=== PATIENT | male | born 1960 | race Hispanic/Latino ===

== ENCOUNTER 2017-05-25 07:51 | Day surgery (SDC) | payer OTHER, MEDICARE ==
[2017-05-24 10:06] VITALS: BP 139/87
[2017-05-24 10:12] LABS: BASOPHILS % (AUTO) 0.7 % (0.0-5.0); EOSINOPHILS % (AUTO) 2.8 % (0.0-8.0); HEMATOCRIT 41.3 % (42-54); LYMPHOCYTES % (AUTO) 27.5 % (21.0-51.0); MEAN CORPUSCULAR HGB CONC 35.2 g/dL (32.0-36.0); MONOCYTES % (AUTO) 6.7 % (3.0-13.0); NEUTROPHILS % (AUTO) 62.3 % (40.0-77.0); PLATELET COUNT (AUTO) 165 K/uL (130-400); RED CELL DISTRIBUTION WIDTH 14.2 % (11.0-15.5); WHITE BLOOD COUNT (AUTO) 6.8 K/uL (4.8-10.8)
[2017-05-24 10:21] LABS: APPEARANCE,URINE Clear (CLEAR); BILIRUBIN,URINE Negative (NEGATIVE); COLOR,URINE Yellow (YELLOW); GLUCOSE, URINE (UA) Negative (NEGATIVE); KETONES,URINE Negative (NEGATIVE); LEUKOCYTE ESTERASE ,URINE Negative (NEGATIVE); NITRATE,URINE Negative (NEGATIVE); OCCULT BLOOD,URINE Small (NEGATIVE); PROTEIN,URINE Negative (NEGATIVE)
[2017-05-24 10:35] LABS: POTASSIUM 4.2 mmol/L (3.5-5.1)
[2017-05-24 10:51] LABS: BACTERIA,URINE Rare /HPF (None Seen); RBC,URINE 0-1 /HPF (0-1); SQUAMOUS EPITHELIAL CELL,UR Rare /LPF (0-2); WBC,URINE 0-1 /HPF (0-1)
[~2017-05-25] VITALS: Ht 170.2 cm; Wt 128.5 kg
[2017-05-25] VITALS (15 sets, daily range): BP systolic 95–131; BP diastolic 56–96
[~2017-05-25 07:51] MED LIST: ALLO300T2 PO; ATOR40TA71 PO; COLC0.6T70 PO; LISI1TAB9 PO; SERT25TA5 PO
[2017-05-25] MEDS ORDERED: INDO50CA71 PO (08:22)
[2017-05-25] MEDS ORDERED: GABA-529 PO (08:22)
[2017-05-25] MEDS ORDERED: LACTATED RINGERS 1000ML 1,000 ML IV ONE (08:24)
[2017-05-25] MEDS ORDERED: BUPIVACAINE/PF 0.25% 30ML VIAL IJ ONE (09:08)
[2017-05-25] MEDS ORDERED: LIDOCAINE PF 2% 5ML ABBOJECT ONE (09:08)
[2017-05-25] MEDS ORDERED: ROCURONIUM BROMIDE 10MG/1ML 5ML VL ONE (09:08)
[2017-05-25] MEDS ORDERED: ONDANSETRON HCL MDV 20ML 2 MG/ML VIAL ONE (09:08)
[2017-05-25] MEDS ORDERED: SUCCINYLCHOLINE 200MG/10ML SYR ONE (09:08)
[2017-05-25] MEDS ORDERED: MIDAZOLAM HCL 1 MG/ML 2ML VIAL ONE (09:09)
[2017-05-25] MEDS ORDERED: PROPOFOL 10 MG/ML 20ML VIAL IV ONE ×2 (09:09)
[2017-05-25] MEDS ORDERED: FENTANYL CITRATE PF 50 MCG/1 ML 5ML AMP IV ONE (09:15)
[2017-05-25] MEDS ORDERED: CALDOLOR 800MG+NS 250ML 250 ML IV ONE (09:43)
[2017-05-25] MEDS ORDERED: GLYCOPYRROLATE 0.2 MG/ML 5 ML VIAL ONE (10:15)
[2017-05-25] MEDS ORDERED: PHENYLEPHRINE HCL 10 MG/ML 1ML VIAL IV ONE (10:15)
[2017-05-25] MEDS ORDERED: MEPERIDINE-PF 25 MG/ML SYG ONE (11:03)
== END 2017-05-25 12:24 | disposition home or self-care (01) ==
LOC: DAH 07:51
PROVIDERS: ATTEND Surgery
DX: K42.9 Umbilical hernia without obstruction or gangrene (principal); Z98.890 Other specified postprocedural states; I10 Essential (primary) hypertension; F41.9 Anxiety disorder, unspecified; E66.01 Morbid (severe) obesity due to excess calories; M10.9 Gout, unspecified
CPT/HCPCS: 36415; 49585; 80048; 81001; 85025; A4450; A4606; A4930; C1781; J0330; J1741; J2001; J2175; J2250; J2370; J2704 ×2; J3490 ×3; J7120 ×2; J3010

== ENCOUNTER 2017-06-05 14:32 | Inpatient (IN) | payer OTHER, MEDICARE ==
[~2017-06-05] VITALS: Ht 172.7 cm; Wt 130.3 kg
[~2017-06-05 14:32] MED LIST changes: +GABA-529 PO; +INDO50CA12 PO
[2017-06-05] MEDS ORDERED: MEROPENEM 1 GM VIAL ONE ×2 (15:38→22:01)
[2017-06-05] MEDS ORDERED: SODIUM CHLORIDE 0.9% 1000ML 1,000 ML IV ONE (15:38)
[2017-06-05] MEDS ORDERED: METRONIDAZOLE 500MG/100ML BAG 100 ML ONE (15:39)
[2017-06-05] MEDS ORDERED: MORPHINE SULFATE 4 MG/1ML SYG ONE ×2 (15:41→22:01)
[2017-06-05 15:45] LABS: BASOPHILS % (AUTO) 0.6 % (0.0-5.0); EOSINOPHILS % (AUTO) 2.4 % (0.0-8.0); HEMATOCRIT 40.5 % (42-54); LYMPHOCYTES % (AUTO) 24.7 % (21.0-51.0); MEAN CORPUSCULAR HEMOGLOBIN 30.9 pg (27.0-33.0); MEAN CORPUSCULAR HGB CONC 35.6 g/dL (32.0-36.0); MEAN CORPUSCULAR VOLUME 86.8 fL (79-99); MONOCYTES % (AUTO) 9.7 % (3.0-13.0); NEUTROPHILS % (AUTO) 62.6 % (40.0-77.0); PLATELET COUNT (AUTO) 206 K/uL (130-400); RED BLOOD CELL COUNT(AUTO) 4.67 MIL/uL (4.50-6.20); RED CELL DISTRIBUTION WIDTH 14.1 % (11.0-15.5); WHITE BLOOD COUNT (AUTO) 8.8 K/uL (4.8-10.8)
[2017-06-05 16:00] LABS: CREATININE 1.2 mg/dL (0.5-1.5); POTASSIUM 3.7 mmol/L (3.5-5.1)
[2017-06-06] MEDS ORDERED: METRONIDAZOLE 500MG/100ML BAG 100 ML ONE ×2 (00:03→07:37)
[2017-06-06] MEDS ORDERED: SODIUM CHLORIDE 0.9% 100 ML IV ONE ×2 (04:03→09:46)
[2017-06-06] MEDS ORDERED: MEROPENEM 1 GM VIAL ONE ×2 (04:03→09:45)
[2017-06-06 07:30] VITALS: BP 110/59
[2017-06-06] MEDS ORDERED: MORPHINE SULFATE 4 MG/1ML SYG ONE (08:34)
[2017-06-06] MEDS ORDERED: ONDANSETRON HCL MDV 20ML 2 MG/ML VIAL ONE (08:52)
[2017-06-06 12:05] VITALS: BP 125/80
[2017-06-06] MEDS ORDERED: ONDANSETRON HCL MDV 20ML 2 MG/ML VIAL IVP PRN (12:30)
[2017-06-06] MEDS: MEROPENEM 1 GM VIAL IVP SCH ×2 (16:37→23:26)
[2017-06-06] MEDS: METRONIDAZOLE 500MG/100ML BAG 100 ML IVPB SCH ×2 (16:38→19:31)
[2017-06-06 17:20] VITALS: BP 115/69
[2017-06-06] MEDS: SODIUM CHLORIDE 0.9% 1000ML 1,000 ML IV SCH (19:14)
[2017-06-06 19:58] VITALS: BP 128/82
[2017-06-07] VITALS (7 sets, daily range): BP systolic 108–128; BP diastolic 64–87
[2017-06-07] MEDS: MEROPENEM 1 GM VIAL IVP SCH ×4 (05:21→22:44)
[2017-06-07] MEDS: METRONIDAZOLE 500MG/100ML BAG 100 ML IVPB SCH ×3 (05:22→22:45)
[2017-06-07] MEDS: SODIUM CHLORIDE 0.9% 1000ML 1,000 ML IV SCH (22:49)
[2017-06-08 03:53] VITALS: BP 133/86
[2017-06-08] MEDS: MEROPENEM 1 GM VIAL IVP SCH ×3 (05:45→17:27)
[2017-06-08] MEDS: METRONIDAZOLE 500MG/100ML BAG 100 ML IVPB SCH ×2 (05:45→14:32)
[2017-06-08] MEDS: SODIUM CHLORIDE 0.9% 1000ML 1,000 ML IV SCH (05:51)
[2017-06-08 07:53] VITALS: BP 132/82
[2017-06-08 11:00] VITALS: BP 144/89
[2017-06-08] MEDS ORDERED: METR500T PO (14:28)
[2017-06-08 16:00] VITALS: BP 138/74
== END 2017-06-08 18:05 | disposition home or self-care (01) | DRG 603 ==
LOC: EDH 14:32 → EDHIP 14:33 → 3CH 06-06 11:40
PROVIDERS: ADMIT Surgery; ATTEND Surgery
DX: L03.311 Cellulitis of abdominal wall (principal); E66.01 Morbid (severe) obesity due to excess calories; Z68.41 Body mass index [BMI] 40.0-44.9, adult; I10 Essential (primary) hypertension; Z91.041 Radiographic dye allergy status
CPT/HCPCS: 36415; 80048; 85025; A4218; J2185; J2270; J3490; J7030

== ENCOUNTER 2017-12-20 04:47 | Emergency (ER) | payer OTHER, MEDICARE ==
[~2017-12-20 04:47] MED LIST changes: +ALBU18HF7 IH; -INDO50CA12 PO; +MECL12.585 PO; +PRED20TA3 PO
[2017-12-20] MEDS ORDERED: ONDANSETRON HCL 4 MG/2 ML VIAL ONE (04:53)
[2017-12-20] MEDS ORDERED: KETOROLAC TROMETHAMINE 30MG/ML ONE (05:04)
[2017-12-20] MEDS ORDERED: HYDROCODONE/ACETAMINOPHEN 10/325 MG TAB ONE (05:05)
[2017-12-20 05:33] LABS: BASOPHILS % (AUTO) 0.5 % (0.0-5.0); EOSINOPHILS % (AUTO) 2.3 % (0.0-8.0); HEMATOCRIT 43.2 % (42-54); LYMPHOCYTES % (AUTO) 30.5 % (21.0-51.0); MEAN CORPUSCULAR HEMOGLOBIN 31.3 pg (27.0-33.0); MEAN CORPUSCULAR HGB CONC 34.6 g/dL (32.0-36.0); MEAN CORPUSCULAR VOLUME 90.3 fL (79-99); MONOCYTES % (AUTO) 6.9 % (3.0-13.0); NEUTROPHILS % (AUTO) 59.8 % (40.0-77.0); PLATELET COUNT (AUTO) 195 K/uL (130-400); RED BLOOD CELL COUNT(AUTO) 4.78 MIL/uL (4.50-6.20); RED CELL DISTRIBUTION WIDTH 14.8 % (11.0-15.5); WHITE BLOOD COUNT (AUTO) 9.9 K/uL (4.8-10.8)
[2017-12-20 05:36] LABS: CREATININE 1.1 mg/dL (0.5-1.5); POTASSIUM 4.4 mmol/L (3.5-5.1)
[2017-12-20] MEDS ORDERED: DEXAMETHASONE SOD PHOSPHATE 10MG/ML 1ML VIAL ONE (06:17)
== END 2017-12-20 06:45 | disposition home or self-care (01) ==
LOC: EDH 04:47
DX: M25.562 Pain in left knee (principal); Z87.891 Personal history of nicotine dependence
CPT/HCPCS: 36415; 73562; 80048; 85025; 96374; 96375; 99285; J1100; J1885; J2405

== ENCOUNTER 2018-01-17 22:19 | Emergency (ER) | payer OTHER, MEDICARE ==
[2018-01-17] MEDS ORDERED: ONDANSETRON HCL 4 MG/2 ML VIAL ONE (23:43)
[2018-01-17] MEDS ORDERED: MORPHINE SULFATE 4 MG/1ML SYG ONE (23:44)
[2018-01-18] MEDS ORDERED: MORPHINE SULFATE 4 MG/1ML SYG ONE (01:00)
[2018-01-18] MEDS ORDERED: KETOROLAC TROMETHAMINE 30MG/ML ONE (01:00)
[2018-01-18] MEDS ORDERED: SODIUM CHLORIDE 0.9% 500ML 500 ML IV ONE (01:15)
[2018-01-18 01:22] LABS: APPEARANCE,URINE Clear (CLEAR); BILIRUBIN,URINE Negative (NEGATIVE); COLOR,URINE Yellow (YELLOW); GLUCOSE, URINE (UA) Negative (NEGATIVE); KETONES,URINE Negative (NEGATIVE); LEUKOCYTE ESTERASE ,URINE Negative (NEGATIVE); NITRATE,URINE Negative (NEGATIVE); OCCULT BLOOD,URINE Negative (NEGATIVE); PROTEIN,URINE Negative (NEGATIVE)
== END 2018-01-18 02:08 | disposition home or self-care (01) ==
LOC: EDH 22:19
DX: G89.29 Other chronic pain (principal); M54.5 Low back pain
CPT/HCPCS: 72131; 81003; 96374; 96375; 96376; 99285; J1885; J2270 ×2; J2405; J7040

== ENCOUNTER → 2018-01-30 | Outpatient (CLI) | payer OTHER, MEDICARE | END | disposition home or self-care (01) | LOC: SHCH 07:58 | PROVIDERS: ATTEND Internal Medicine Cardiovascular Disease | DX: I73.9 Peripheral vascular disease, unspecified (principal); R60.9 Edema, unspecified | CPT/HCPCS: 93922; 93970 ==

== ENCOUNTER 2018-06-06 02:12 | Emergency (ER) | payer OTHER, MEDICARE ==
[2018-06-06] MEDS ORDERED: ASPIRIN 325 MG TABLET ONE (02:24)
[2018-06-06 02:44] LABS: BASOPHILS % (AUTO) 0.9 % (0.0-5.0); EOSINOPHILS % (AUTO) 3.2 % (0.0-8.0); HEMATOCRIT 42.2 % (42-54); LYMPHOCYTES % (AUTO) 32.9 % (21.0-51.0); MEAN CORPUSCULAR HEMOGLOBIN 30.9 pg (27.0-33.0); MEAN CORPUSCULAR VOLUME 88.1 fL (79-99); MONOCYTES % (AUTO) 6.8 % (3.0-13.0); NEUTROPHILS % (AUTO) 56.2 % (40.0-77.0); PLATELET COUNT (AUTO) 164 K/uL (130-400); RED BLOOD CELL COUNT(AUTO) 4.78 MIL/uL (4.50-6.20); RED CELL DISTRIBUTION WIDTH 13.6 % (11.0-15.5); WHITE BLOOD COUNT (AUTO) 7.8 K/uL (4.8-10.8)
[2018-06-06 03:05] LABS: CREATININE 1.1 mg/dL (0.5-1.5); POTASSIUM 3.4 mmol/L (3.5-5.1)
[2018-06-06] MEDS ORDERED: KETOROLAC TROMETHAMINE 30MG/ML ONE (03:12)
[2018-06-06 03:16] LABS: ALBUMIN 3.8 g/dL (3.5-5.0); BILIRUBIN,TOTAL 0.4 mg/dL (0.2-1.0); TOTAL PROTEIN, SERUM 6.8 g/dL (6.0-8.3)
== END 2018-06-06 03:51 | disposition home or self-care (01) ==
LOC: EDH 02:12
DX: R07.89 Other chest pain (principal); R42 Dizziness and giddiness; F41.9 Anxiety disorder, unspecified; I10 Essential (primary) hypertension
CPT/HCPCS: 36415; 71045; 80053; 82550; 84484; 85025; 93005; 96374; 99284; J1885

== ENCOUNTER 2018-09-23 21:13 | Emergency (ER) | payer OTHER, MEDICARE | END 2018-09-23 23:18 | LOC: EDH 21:13 | DX: S50.01XA Contusion of right elbow, initial encounter (principal); M54.5 Low back pain; I10 Essential (primary) hypertension; M19.90 Unspecified osteoarthritis, unspecified site; F41.9 Anxiety disorder, unspecified; Z98.890 Other specified postprocedural states; X58.XXXA Exposure to other specified factors, initial encounter; Y93.89 Activity, other specified; Y92.89 Other specified places as the place of occurrence of the external cause; Y99.8 Other external cause status | CPT/HCPCS: 72100; 73080 ==

== ENCOUNTER 2019-01-06 17:43 | Emergency (ER) | payer OTHER, MEDICARE ==
[~2019-01-06 17:43] MED LIST changes: +LISI1TAB32 PO; -LISI1TAB9 PO
[2019-01-06 18:18] LABS: BASOPHILS % (AUTO) 1.1 % (0.0-5.0); EOSINOPHILS % (AUTO) 2.4 % (0.0-8.0); HEMATOCRIT 43.7 % (42-54); LYMPHOCYTES % (AUTO) 29.7 % (21.0-51.0); MEAN CORPUSCULAR HEMOGLOBIN 31.2 pg (27.0-33.0); MEAN CORPUSCULAR HGB CONC 34.8 g/dL (32.0-36.0); MEAN CORPUSCULAR VOLUME 89.8 fL (79-99); MONOCYTES % (AUTO) 7.3 % (3.0-13.0); NEUTROPHILS % (AUTO) 59.5 % (40.0-77.0); PLATELET COUNT (AUTO) 165 K/uL (130-400); RED BLOOD CELL COUNT(AUTO) 4.87 MIL/uL (4.50-6.20); RED CELL DISTRIBUTION WIDTH 13.6 % (11.0-15.5); WHITE BLOOD COUNT (AUTO) 7.5 K/uL (4.8-10.8)
[2019-01-06] MEDS ORDERED: ASPIRIN 325 MG TABLET ONE (18:32)
[2019-01-06 18:38] LABS: CREATININE 1.5 mg/dL (0.5-1.5); POTASSIUM 3.9 mmol/L (3.5-5.1)
[2019-01-06 18:39] LABS: INR 0.93 (0.85-1.15); PARTIAL THROMBOPLASTIN TIME 24.9 SEC (26.3-35.5); PROTHROMBIN TIME 9.8 SEC (9.6-11.6)
[2019-01-06 18:42] LABS: ALBUMIN 3.7 g/dL (3.5-5.0); BILIRUBIN,TOTAL 0.3 mg/dL (0.2-1.0); TOTAL PROTEIN, SERUM 7.1 g/dL (6.0-8.3)
[2019-01-06 19:23] LABS: APPEARANCE,URINE Clear (CLEAR); BILIRUBIN,URINE Negative (NEGATIVE); COLOR,URINE Yellow (YELLOW); GLUCOSE, URINE (UA) Negative (NEGATIVE); KETONES,URINE Negative (NEGATIVE); LEUKOCYTE ESTERASE ,URINE Negative (NEGATIVE); NITRATE,URINE Negative (NEGATIVE); OCCULT BLOOD,URINE Negative (NEGATIVE); PROTEIN,URINE Negative (NEGATIVE)
[2019-01-06 19:36] LABS: AMPHET/METH SCREEN,URINE NEGATIVE (NEGATIVE); BARBITURATE SCREEN, URINE NEGATIVE (NEGATIVE); BENZODIAZEPINES SCREEN,URINE NEGATIVE (NEGATIVE); CANNABINOID SCREEN,URINE NEGATIVE (NEGATIVE); COCAINE SCREEN,URINE NEGATIVE (NEGATIVE); OPIATE SCREEN,URINE POSITIVE (NEGATIVE); PHENCYCLIDINE SCREEN,URINE NEGATIVE (NEGATIVE)
== END 2019-01-06 21:33 | disposition home or self-care (01) ==
LOC: EDH 17:43
DX: R07.89 Other chest pain (principal); R73.9 Hyperglycemia, unspecified; R06.02 Shortness of breath
CPT/HCPCS: 36415; 71045; 80053; 80305; 81003; 82550; 84484; 85025; 85610; 85730; 93005

== ENCOUNTER 2019-01-07 08:07 | Emergency (ER) | payer OTHER, MEDICARE ==
[2019-01-07] MEDS ORDERED: TETANUS/DIPHTHERIA TOXOID [ADULT] 0.5 ML VIAL IM ONE (09:22)
== END 2019-01-07 09:36 | disposition home or self-care (01) ==
LOC: EDH 08:07
DX: S91.012A Laceration without foreign body, left ankle, initial encounter (principal); H60.312 Diffuse otitis externa, left ear; F41.9 Anxiety disorder, unspecified; M19.90 Unspecified osteoarthritis, unspecified site; I10 Essential (primary) hypertension; W26.8XXA Contact with other sharp object(s), not elsewhere classified, initial encounter; Y93.89 Activity, other specified; Y92.89 Other specified places as the place of occurrence of the external cause; Y99.8 Other external cause status
CPT/HCPCS: 12002; 90471; 90714

== ENCOUNTER 2019-03-28 22:49 | Emergency (ER) | payer OTHER, MEDICARE ==
[~2019-03-28 22:49] MED LIST changes: +MECL-183 PO; -MECL12.585 PO
[2019-03-28] MEDS ORDERED: NAPROXEN 500 MG TABLET ONE (23:42)
== END 2019-03-28 23:54 | disposition home or self-care (01) ==
LOC: EDH 22:49
DX: S62.101A Fracture of unspecified carpal bone, right wrist, initial encounter for closed fracture (principal); F41.9 Anxiety disorder, unspecified; M19.90 Unspecified osteoarthritis, unspecified site; M10.9 Gout, unspecified; I10 Essential (primary) hypertension; Z98.890 Other specified postprocedural states; W18.39XA Other fall on same level, initial encounter; Y93.89 Activity, other specified; Y92.098 Other place in other non-institutional residence as the place of occurrence of the external cause; Y99.8 Other external cause status
CPT/HCPCS: 29125; 73110